=== PATIENT | female | born 1985 ===

== ENCOUNTER 2017-02-22 13:10 | Emergency (ER) | payer OTHER ==
--- NOTE | 2017-02-22 19:06 | ED ORDER SUMMARY ---
..... Patient: STEF PINEDO OrderSheet [facility] VisitID: [id number] [address] [place] [address] 31y, F Registration Date/Time: 02/22/2017 ORDER SHEET Weight: 68.0 kg (stated) Allergies: No Known Drug Allergy GENERAL ORDERS: Urine Drug Screen Urgent (13:25 02/22/2017 EKoroleva P.A.-C) (Ack 13:36 RKaruga) (13:50 KWilliams R.N.) Urine Urgent (13:25 02/22/2017 EKoroleva P.A.-C) (Ack 13:36 RKaruga) (13:57 KPage-Kuchan R.N.) UA-Culture if indicated Urgent (13:25 02/22/2017 EKoroleva P.A.-C) (Ack 13:36 RKaruga) (13:50 KWilliams R.N.) CBC w Diff Urgent (13:34 02/22/2017 EKoroleva P.A.-C) (Ack 13:36 RKaruga) (13:57 KPage-Kuchan R.N.) BMP Urgent (13:34 02/22/2017 EKoroleva P.A.-C) (Ack 13:36 RKaruga) (13:57 KPage-Kuchan R.N.) Ethyl Alcohol Urgent (13:34 02/22/2017 EKoroleva P.A.-C) (Ack 13:36 RKaruga) (13:57 KPage-Kuchan R.N.) MEDICATION ORDERS: IV FLUIDS: ORDER SHEET NOTES: [Electronically signed by Tea Farmer R.N. (19:31 02/22/2017)] [Electronically signed by Kimberley PinaANava-C (20:56 02/22/2017)] [Electronically locked/signed by Tea Farmer R.N. (19:31 02/22/2017)]
--- NOTE | 2017-02-22 19:06 | ED ORDER SUMMARY ---
..... Patient: STEF PINEDO OrderSheet [facility] VisitID: [id number] [address] [place] [address] 31y, F Registration Date/Time: 02/22/2017 ORDER SHEET Weight: 68.0 kg (stated) Allergies: No Known Drug Allergy GENERAL ORDERS: Urine Drug Screen Urgent (13:25 02/22/2017 EKoroleva P.A.-C) (Ack 13:36 RKaruga) (13:50 KWilliams R.N.) Urine Urgent (13:25 02/22/2017 EKoroleva P.A.-C) (Ack 13:36 RKaruga) (13:57 KPage-Kuchan R.N.) UA-Culture if indicated Urgent (13:25 02/22/2017 EKoroleva P.A.-C) (Ack 13:36 RKaruga) (13:50 KWilliams R.N.) CBC w Diff Urgent (13:34 02/22/2017 EKoroleva P.A.-C) (Ack 13:36 RKaruga) (13:57 KPage-Kuchan R.N.) BMP Urgent (13:34 02/22/2017 EKoroleva P.A.-C) (Ack 13:36 RKaruga) (13:57 KPage-Kuchan R.N.) Ethyl Alcohol Urgent (13:34 02/22/2017 EKoroleva P.A.-C) (Ack 13:36 RKaruga) (13:57 KPage-Kuchan R.N.) MEDICATION ORDERS: IV FLUIDS: ORDER SHEET NOTES: [Electronically signed by Tea Farmer R.N. (19:31 02/22/2017)] [Electronically signed by Kimberley PinaANava-C (20:56 02/22/2017)] [Electronically locked/signed by Tea Farmer R.N. (19:31 02/22/2017)]
--- NOTE | 2017-02-22 19:06 | ED NURSING NOTES ---
Clinical Report - Nurses [facility] [place] [address] 02/22/2017 13:11 Patient: STEF PINEDO TRIAGE Triage time 13:05. Acuity: LEVEL 2. Chief Complaint: SUICIDAL THOUGHTS. Alert. No acute distress. JAMI COMA SCORE: Jami Coma Scale: 15- eyes open spontaneously (4); best verbal response- oriented x 4 (5); best motor response- obeys commands (6). --13:47 Faustina Pinedo R.N. 13:16 02/22/17. BP: 125/73. HR: 113. RR: 16. O2 saturation: 99% on room air. Temp: 98.4 F (oral). Pain level now 0/10. --13:47 Faustina Pinedo R.N. BREATHALYZER: Breathalyzer (.000). --13:49 Faustina Pinedo R.N. 13:20. BREATHALYZER: Breathalyzer (.00). --14:03 [facility]. Weight: 68 kg stated. Height/Length: 62 inches Per Patient. BMI: 27.4. --13:20 Faustina Pinedo R.N. Medications OLANZapine Oral. --13:43 Faustina Pinedo R.N. Depakote Oral. --13:43 Faustina Pinedo R.N. Allergies No Known Drug Allergy. --13:43 Faustina Pinedo R.N. History ( pt arrived with PD, arrested for theft at [facility] and stated to [employer] officer, "I'm gonna be suicidal if you take me to longterm." Pt states to this RN in triage, "I'm not suicidal, I said I was going to be suicidal if he arrested me." States she is withdrawing from heroin.). SOCIAL HX: Current every day heavy tobacco smoker- 1 pack per day. History of heavy drug use: heroin, methamphetamines. Recently used drugs yesterday. No alcohol use. FALL RISK ASSESSMENT: Fall risk assessment completed. No fall risk identified. NUTRITIONAL RISK ASSESSMENT: The nutritional risk assessment revealed no deficiencies. FUNCTIONAL ASSESSMENT: Functional assessment: no impairments noted. LEARNING NEEDS ASSESSMENT: The learning needs assessment revealed no barriers. SKIN INTEGRITY ASSESSMENT: Skin integrity risk assessment completed. No skin integrity risk identified. --13:47 Faustina Pinedo R.N. PROBLEMS: Hypokalemia. Vomiting. "hearing voices". Laceration. Tetanus Status. LNMP - Last Normal Menstrual Period. --13:44 Faustina Pinedo R.N. ADDITIONAL SURGERIES: . --13:44 Faustina Pinedo R.N. Interventions ID band on patient. To treatment room. --13:47 Faustina Pinedo R.N. PHYSICAL ASSESSMENT Ambulatory to room. GENERAL / NEURO / PSYCH: Appears anxious. RESPIRATORY: Respirations not labored. CVS: Capillary refill less than 2 seconds. GI / : Abdomen soft. SKIN: ( open lesions to left wrist and left AC, pt states they are from cutting herself with her nails). --13:48 Faustina Pinedo R.N. Ambulatory to room. Patient gowned. ( clothing bagged and tagged and placed in locker by Patricia OLIVAREZ). GENERAL / NEURO / PSYCH: Alert. Oriented X 4. Speech within normal limits. Poor eye contact. Appears agitated (bib [employer] for c/o SI, pt denies). Patient appears well-nourished and unkempt. RESPIRATORY: Respirations not labored. Breath sounds within normal limits. CVS: Capillary refill less than 2 seconds. GI / : Abdomen soft and nontender. SKIN: Multiple extremity wounds present (various stages of healing as already documented). Skin is warm and dry. Laceration; (pt has lacs to left ac, left radial side of wrist and superficial scratches to bilat arms in various degrees of healing, pt reports self inflicted "I use my fingernails" pt reports utd on tetanus. pt has scarring to bilat upper extremities). Skin color is within normal limits. --13:54 Tea Farmer R.N. NURSING PROGRESS NOTES 13:48 02/22/17. The plan of care for this patient has been created. Patient gowned. Head of bed elevated. Suicide precautions initiated: a safety sweep of the room has been completed. Frequent one on one supervision, clothing / valuables removed and placed in the safe. Call light placed in reach. Bed placed in lowest position. Brakes of bed on. Patient ready for evaluation- chart flagged. --13:48 Faustina Pinedo R.N. Assisted patient to bathroom and back to bed; tolerated well. Patient ID band checked for patient name and birthdate: patient confirmed. Instructions provided to collect clean catch urine and patient verbalized understanding. Clean catch urine collected with return of yellow-colored clear urine; odor is normal; sample sent to lab for urinalysis and drug screen. Specimen labeled in the presence of the patient. --13:49 Faustina Pinedo R.N. Checked patient birthdate: patient confirmed. Blood samples drawn from the left antecubital space with Vacutainer 22g by nurse per protocol ; labeled in presence of the patient and sent to lab: rainbow set. Suicide precautions maintained: a safety sweep of the room is ongoing. Room stripped of hazardous items. Continuous one on one supervision, clothing / valuables removed and placed in the safe. Patient placed in paper scrubs and in direct sight of the nurse's station. Provider has been notified. Two patient identifiers checked. Call light placed in reach. Bed placed in lowest position. Brakes of bed on. Care transferred and report received. ( food provided by EDT, ok'd with PA). --13:56 Tea Farmer R.N. ( 13:20. BREATHALYZER: Breathalyzer (.00).). --14:04 GraemePatricia greenberg 13:55. ( At Pt bedside to give her sandwiches and ice water.). --14:05 Patricia Corrales ( per PA, pt medically clear, ESW notified with aleyda time of 1800). --14:19 Tea Farmer R.N. ( [facility] fax PAT team called for an assessment and the gave us an approximate time of arrival as 18:00). --14:21 Patricia Corrales ( pt sleeping, equal rise/fall of chest, call light in reach.). --14:58 Tea Farmer R.N. The patient is sleeping. --15:02 Faustina Pinedo R.N. ( Ambulated to and from the bathroom x 2, Patient stating, having diarrhea. Ambulated with standby staff.). --15:14 Mandi Rao R.N. ( food provided to pt, pt aware we are waiting for ESW). --16:22 Tea Farmer R.N. ( pt up in room ambulating, pt updated on wait for esw- pt ate meal provided, reports "I'm nieves dope sick but I ate it" v/s taken, pt cooperative, pt was found up in room playing with iv pole, asked to remain on gurney to maintain her safety and ours.). --17:00 Tea Farmer R.N. 16:59 02/22/17. BP: 132/88. HR: 94. RR: 17. O2 saturation: 99%. Pain level now 0/10. --17:00 Tea Farmer R.N. ( pt belongings provided to pt by JUANIS Guillen). --19:31 Tea Farmer R.N. DISPOSITION / DISCHARGE ( preparing pt for dispo). --19:19 Tea Farmer R.N. Departure time: 19:24 Feb 22 2017. Condition at departure: improved. The goals identified in the patient's plan of care were met. The following issues were addressed: psycho-social issues and follow up care. PAT team ok'd for dc- pt denies SI upon dispo and t/o pts care. No learning barriers present. Discharge instructions provided and reviewed with the patient. Reviewed need to stop smoking- provided smoking cessation counseling. Patient verbalized understanding. The patient was discharged by the physician assistant professor of chemistry. She was discharged home and accompanied by family and pts aunt coming to pick pt up. She left the Emergency Department ambulatory and via private vehicle. Family member driving. ( pt given dc instructions, enc to stop smoking and drug use, pt reports having been in treatment prior and has plans for friday looking into in patient treatment for heroin use. pt denies SI). FALL RISK ASSESSMENT: Fall risk assessment completed. No fall risk identified. --19:30 Tea Farmer R.N. 19:26 02/22/17. BP: 142/79. HR: 92. RR: 17. O2 saturation: 97%. Temp: 98.4 F. Pain level now 0/10. --19:30 Tea Farmer R.N. Locked/Released at 02/22/2017 19:31 by Tea Farmer R.N.
--- NOTE | 2017-02-22 19:06 | ED NURSING NOTES ---
Clinical Report - Nurses [facility] [place] [address] 02/22/2017 13:11 Patient: STEF PINEDO TRIAGE Triage time 13:05. Acuity: LEVEL 2. Chief Complaint: SUICIDAL THOUGHTS. Alert. No acute distress. JAMI COMA SCORE: Jami Coma Scale: 15- eyes open spontaneously (4); best verbal response- oriented x 4 (5); best motor response- obeys commands (6). --13:47 Faustina Pinedo R.N. 13:16 02/22/17. BP: 125/73. HR: 113. RR: 16. O2 saturation: 99% on room air. Temp: 98.4 F (oral). Pain level now 0/10. --13:47 Faustina Pinedo R.N. BREATHALYZER: Breathalyzer (.000). --13:49 Faustina Pinedo R.N. 13:20. BREATHALYZER: Breathalyzer (.00). --14:03 [facility]. Weight: 68 kg stated. Height/Length: 62 inches Per Patient. BMI: 27.4. --13:20 Faustina Pinedo R.N. Medications OLANZapine Oral. --13:43 Faustina Pinedo R.N. Depakote Oral. --13:43 Faustina Pinedo R.N. Allergies No Known Drug Allergy. --13:43 Faustina Pinedo R.N. History ( pt arrived with PD, arrested for theft at [facility] and stated to [employer] officer, "I'm gonna be suicidal if you take me to [facility]." Pt states to this RN in triage, "I'm not suicidal, I said I was going to be suicidal if he arrested me." States she is withdrawing from heroin.). SOCIAL HX: Current every day heavy tobacco smoker- 1 pack per day. History of heavy drug use: heroin, methamphetamines. Recently used drugs yesterday. No alcohol use. FALL RISK ASSESSMENT: Fall risk assessment completed. No fall risk identified. NUTRITIONAL RISK ASSESSMENT: The nutritional risk assessment revealed no deficiencies. FUNCTIONAL ASSESSMENT: Functional assessment: no impairments noted. LEARNING NEEDS ASSESSMENT: The learning needs assessment revealed no barriers. SKIN INTEGRITY ASSESSMENT: Skin integrity risk assessment completed. No skin integrity risk identified. --13:47 Faustina Pinedo R.N. PROBLEMS: Hypokalemia. Vomiting. "hearing voices". Laceration. Tetanus Status. LNMP - Last Normal Menstrual Period. --13:44 Faustina Pinedo R.N. ADDITIONAL SURGERIES: . --13:44 Faustina Pinedo R.N. Interventions ID band on patient. To treatment room. --13:47 Faustina Pinedo R.N. PHYSICAL ASSESSMENT Ambulatory to room. GENERAL / NEURO / PSYCH: Appears anxious. RESPIRATORY: Respirations not labored. CVS: Capillary refill less than 2 seconds. GI / : Abdomen soft. SKIN: ( open lesions to left wrist and left AC, pt states they are from cutting herself with her nails). --13:48 Faustina Pinedo R.N. Ambulatory to room. Patient gowned. ( clothing bagged and tagged and placed in locker by Patricia OLIVAREZ). GENERAL / NEURO / PSYCH: Alert. Oriented X 4. Speech within normal limits. Poor eye contact. Appears agitated (bib [employer] for c/o SI, pt denies). Patient appears well-nourished and unkempt. RESPIRATORY: Respirations not labored. Breath sounds within normal limits. CVS: Capillary refill less than 2 seconds. GI / : Abdomen soft and nontender. SKIN: Multiple extremity wounds present (various stages of healing as already documented). Skin is warm and dry. Laceration; (pt has lacs to left ac, left radial side of wrist and superficial scratches to bilat arms in various degrees of healing, pt reports self inflicted "I use my fingernails" pt reports utd on tetanus. pt has scarring to bilat upper extremities). Skin color is within normal limits. --13:54 Tea Farmer R.N. NURSING PROGRESS NOTES 13:48 02/22/17. The plan of care for this patient has been created. Patient gowned. Head of bed elevated. Suicide precautions initiated: a safety sweep of the room has been completed. Frequent one on one supervision, clothing / valuables removed and placed in the safe. Call light placed in reach. Bed placed in lowest position. Brakes of bed on. Patient ready for evaluation- chart flagged. --13:48 Faustina Pinedo R.N. Assisted patient to bathroom and back to bed; tolerated well. Patient ID band checked for patient name and birthdate: patient confirmed. Instructions provided to collect clean catch urine and patient verbalized understanding. Clean catch urine collected with return of yellow-colored clear urine; odor is normal; sample sent to lab for urinalysis and drug screen. Specimen labeled in the presence of the patient. --13:49 Faustina Pinedo R.N. Checked patient birthdate: patient confirmed. Blood samples drawn from the left antecubital space with Vacutainer 22g by nurse per protocol ; labeled in presence of the patient and sent to lab: rainbow set. Suicide precautions maintained: a safety sweep of the room is ongoing. Room stripped of hazardous items. Continuous one on one supervision, clothing / valuables removed and placed in the safe. Patient placed in paper scrubs and in direct sight of the nurse's station. Provider has been notified. Two patient identifiers checked. Call light placed in reach. Bed placed in lowest position. Brakes of bed on. Care transferred and report received. ( food provided by EDT, ok'd with PA). --13:56 Tea Farmer R.N. ( 13:20. BREATHALYZER: Breathalyzer (.00).). --14:04 GraemePatricia greenberg 13:55. ( At Pt bedside to give her sandwiches and ice water.). --14:05 Patricia Corrales ( per PA, pt medically clear, ESW notified with aleyda time of 1800). --14:19 Tea Farmer R.N. ( [facility] fax PAT team called for an assessment and the gave us an approximate time of arrival as 18:00). --14:21 Patricia Corrales ( pt sleeping, equal rise/fall of chest, call light in reach.). --14:58 Tea Farmer R.N. The patient is sleeping. --15:02 Faustina Pinedo R.N. ( Ambulated to and from the bathroom x 2, Patient stating, having diarrhea. Ambulated with standby staff.). --15:14 Mandi Rao R.N. ( food provided to pt, pt aware we are waiting for ESW). --16:22 Tea Farmer R.N. ( pt up in room ambulating, pt updated on wait for esw- pt ate meal provided, reports "I'm nieves dope sick but I ate it" v/s taken, pt cooperative, pt was found up in room playing with iv pole, asked to remain on gurney to maintain her safety and ours.). --17:00 Tea Farmer R.N. 16:59 02/22/17. BP: 132/88. HR: 94. RR: 17. O2 saturation: 99%. Pain level now 0/10. --17:00 Tea Farmer R.N. ( pt belongings provided to pt by JUANIS Guillen). --19:31 eTa Farmer R.N. DISPOSITION / DISCHARGE ( preparing pt for dispo). --19:19 Tea Farmer R.N. Departure time: 19:24 Feb 22 2017. Condition at departure: improved. The goals identified in the patient's plan of care were met. The following issues were addressed: psycho-social issues and follow up care. PAT team ok'd for dc- pt denies SI upon dispo and t/o pts care. No learning barriers present. Discharge instructions provided and reviewed with the patient. Reviewed need to stop smoking- provided smoking cessation counseling. Patient verbalized understanding. The patient was discharged by the physician actuarial assistant. She was discharged home and accompanied by family and pts aunt coming to pick pt up. She left the Emergency Department ambulatory and via private vehicle. Family member driving. ( pt given dc instructions, enc to stop smoking and drug use, pt reports having been in treatment prior and has plans for friday looking into in patient treatment for heroin use. pt denies SI). FALL RISK ASSESSMENT: Fall risk assessment completed. No fall risk identified. --19:30 Tea Farmer R.N. 19:26 02/22/17. BP: 142/79. HR: 92. RR: 17. O2 saturation: 97%. Temp: 98.4 F. Pain level now 0/10. --19:30 Tea Farmer R.N. Locked/Released at 02/22/2017 19:31 by Tea Farmer R.N.
--- NOTE | 2017-02-22 19:06 | ED CLINICAL REPORT ---
Clinical Report - Physicians/Mid Levels [facility] [address] [place] [address] 02/22/2017 13:11 Patient: STEF PINEDO Time Seen: 1309Feb 22 2017. Arrived- By private vehicle. Police present. Historian- patient. HISTORY OF PRESENT ILLNESS Chief Complaint: DEPRESSED and SUICIDAL THOUGHTS. This started just prior to arrival. (Patient was in [facility], when she was found stealing, and was going to be going to residential, when she expressed suicidal thought to the officer, who brought her in as an involuntary. Threatened to cut her wrist). Recent drug use (heroin yesterday). Has been sleeping. No anxiety. REVIEW OF SYSTEMS No headache, abdominal pain or diarrhea. All systems otherwise negative, except as recorded above. SOCIAL HISTORY History of IV drug use: heroin. Has place to stay. ADDITIONAL NOTES The nursing notes have been reviewed. PHYSICAL EXAM Vital Signs: 02/22/2017 13:16 BP: 125/73. HR: 113. RR: 16. O2 saturation: 99%. Temp: 98.4 F. Appearance: No apparent distress. (walking around the room). Neck: Normal inspection. No meningeal signs. CVS: Normal heart rate and rhythm. Heart sounds normal. Respiratory: Breath sounds normal. Chest nontender. Abdomen: Soft. No abdominal tenderness. Skin: Normal skin color. Psych / Neuro: Cognition normal. Thought process normal. Insight and judgement normal. Cranial nerves normal (as tested). No cerebellar findings. LABS, X-RAYS, AND EKG Laboratory Tests: UA-Culture if indicated: (FLAKITA: 02/22/2017 13:22) ( MsgRcvd 02/22/2017 13:42) Final results Test Result Flag Units (Reference) URINE COLOR YELLOW URINE APPEARANCE CLEAR URINE GLUCOSE NEGATIVE (NEGATIVE) URINE BILIRUBIN NEGATIVE (NEGATIVE) URINE KETONE NEGATIVE (NEGATIVE) URINE SPECIFIC GRAVITY 1.015 (1.010-1.030) URINE PH 8.0 (5.0-8.0) URINE PROTEIN NEGATIVE (NEGATIVE) URINE UROBILINOGEN 0.2 EU/dL (0.2-1.0) URINE NITRITE NEGATIVE (NEGATIVE) URINE BLOOD NEGATIVE (NEGATIVE) URINE LEUK ESTERASE NEGATIVE (NEGATIVE) URINE RBC RARE rbc/hpf (0-1) URINE WBC 0-1 wbc/hpf (0-1) URINE EPITHELIAL CELLS 1-3 EPI/hpf (0-5) URINE BACTERIA NONE SEEN (NONE SEEN) URINE COMMENT CULT NOT INDICATED URINE CULTURES ARE SET-UP BASED ON THE FOLLOWING CRITERIA:POSITIVE NITRITEPOSITIVE LEUKOCYTE ESTERASEGREATER THAN 10 WHITE BLOOD CELLSMODERATE (2+) OR GREATER BACTERIA Urine: (FLAKITA: 02/22/2017 13:22) ( [facility] 02/22/2017 13:40) Final results Test Result Flag Units (Reference) URINE NEGATIVE CBC w Diff: (FLAKITA: 02/22/2017 13:25) ( [facility] 02/22/2017 13:48) Final results Test Result Flag Units (Reference) WHITE BLOOD COUNT 10.9 K/uL (4.5-11.5) RED BLOOD COUNT 4.38 M/uL (4.00-5.20) HEMOGLOBIN 12.6 gm/dL (12.0-16.0) HEMATOCRIT 37.9 % (36.0-46.0) MEAN CELL VOLUME 87 fL (80-100) MEAN CORPUSCULAR HGB 29 pg (26-34) MEAN CORPUSCULAR HGB CONC 33 g/dL (31-37) RED CELL DISTRIBUTION WIDTH 15.4 H % (11.6-14.8) PLATELET COUNT 274 K/uL (150-400) NEUTROPHIL % 83.6 H % (50-75) LYMPH % 12.3 L % (25-40) MONO % 3.4 % (3-14) EOSINOPHIL % 0.4 % (0-4) BASOPHIL % 0.3 % (0-2) BMP: (FLAKITA: 02/22/2017 13:25) ( [facility] 02/22/2017 14:05) Final results Test Result Flag Units (Reference) GLUCOSE 108 mg/dL (70-110) BUN 10 mg/dL (7-18) CREATININE 0.7 mg/dL (0.6-1.3) Estimated GFR >60 mL/min Estimated GFR- >60 mL/min Note: Persistent reduction over 3 months in eGFR<60 mL/min/1.73 m2 defines CKD. Patients with eGFR values>=60 mL/min/1.73 m2 may also have CKD if evidence ofpersistent proteinuria. Additional information may be foundat www.kidney.org. SODIUM 141 mmol/L (136-145) POTASSIUM 3.9 mmol/L (3.5-5.1) CHLORIDE 105 mmol/L (98-107) CARBON DIOXIDE 26 mmol/L (21-32) CALCIUM 8.6 mg/dL (8.5-10.1) ETHYL ALCOHOL < 3 L mg/dL (3-10) Urine Drug Screen: (FLAKITA: 02/22/2017 13:22) ( MsgRcvd 02/22/2017 14:04) Final results Test Result Flag Units (Reference) AMPHETAMINE/METHAMPHETAMINE NEGATIVE (NEGATIVE) BARBITURATE NEGATIVE (NEGATIVE) BENZODIAZEPINE NEGATIVE (NEGATIVE) CANNABINOID NEGATIVE (NEGATIVE) COCAINE NEGATIVE (NEGATIVE) ECSTASY NEGATIVE (NEGATIVE) METHADONE NEGATIVE (NEGATIVE) OPIATE POSITIVE H (NEGATIVE) The urine drug screen is a qualitative screening test fordrug overdose and abuse. All screen results should beconsidered as presumptive.Drugs screened for are as follows:BenzodiazepinesCocaineAmphetamines/MetamphetaminesTHC (Tetrahydrocannabinol)OpiatesBarbituratesEcstasyMethadonePositive results are unconfirmed. For confirmation, notifythe lab for the specimen to be sent to the reference lab.All confirmations must be performed by a differentmethodology.The ingestion of natural herbal and plant productscontaining Ephedra/Ephedra metabolites can produce in urineone or more substances capable of cross reacting withamphetamine/methamphetamine immunoassays. These testsprovide a preliminary result only. A more specificalternative chemical method must be used to obtain aconfirmed analytical result. . PROGRESS AND PROCEDURES Course of Care: Pt made SI statements at police: reports she would cut her self Patient was cleared medically. Awaiting for evaluation. Patient stable. To follow up outpatient. Patient was offered a crisis bed, declined. Was cleared and sign for contract with [facility] team. 02/22/2017 19:26 BP: 142/79. HR: 92. RR: 17. O2 saturation: 97%. Temp: 98.4 F. Patient is stable. Patient/family counseled. Disposition: Discharged. CLINICAL IMPRESSION Suicidal ideation. Mild major depressive disorder. Hypertension. Substance abuse problems: abuse of opiates. Substance dependence problems: dependence on opiates. (Electronically signed by Kimberley Pina P.A.-C 02/22/2017 20:56)
--- NOTE | 2017-02-22 19:06 | ED CLINICAL REPORT ---
Clinical Report - Physicians/Mid Levels [facility] [address] [place] [address] 02/22/2017 13:11 Patient: STEF PINEDO Time Seen: 1309Feb 22 2017. Arrived- By private vehicle. Police present. Historian- patient. HISTORY OF PRESENT ILLNESS Chief Complaint: DEPRESSED and SUICIDAL THOUGHTS. This started just prior to arrival. (Patient was in [facility], when she was found stealing, and was going to be going to snf, when she expressed suicidal thought to the officer, who brought her in as an involuntary. Threatened to cut her wrist). Recent drug use (heroin yesterday). Has been sleeping. No anxiety. REVIEW OF SYSTEMS No headache, abdominal pain or diarrhea. All systems otherwise negative, except as recorded above. SOCIAL HISTORY History of IV drug use: heroin. Has place to stay. ADDITIONAL NOTES The nursing notes have been reviewed. PHYSICAL EXAM Vital Signs: 02/22/2017 13:16 BP: 125/73. HR: 113. RR: 16. O2 saturation: 99%. Temp: 98.4 F. Appearance: No apparent distress. (walking around the room). Neck: Normal inspection. No meningeal signs. CVS: Normal heart rate and rhythm. Heart sounds normal. Respiratory: Breath sounds normal. Chest nontender. Abdomen: Soft. No abdominal tenderness. Skin: Normal skin color. Psych / Neuro: Cognition normal. Thought process normal. Insight and judgement normal. Cranial nerves normal (as tested). No cerebellar findings. LABS, X-RAYS, AND EKG Laboratory Tests: UA-Culture if indicated: (FLAKITA: 02/22/2017 13:22) ( MsgRcvd 02/22/2017 13:42) Final results Test Result Flag Units (Reference) URINE COLOR YELLOW URINE APPEARANCE CLEAR URINE GLUCOSE NEGATIVE (NEGATIVE) URINE BILIRUBIN NEGATIVE (NEGATIVE) URINE KETONE NEGATIVE (NEGATIVE) URINE SPECIFIC GRAVITY 1.015 (1.010-1.030) URINE PH 8.0 (5.0-8.0) URINE PROTEIN NEGATIVE (NEGATIVE) URINE UROBILINOGEN 0.2 EU/dL (0.2-1.0) URINE NITRITE NEGATIVE (NEGATIVE) URINE BLOOD NEGATIVE (NEGATIVE) URINE LEUK ESTERASE NEGATIVE (NEGATIVE) URINE RBC RARE rbc/hpf (0-1) URINE WBC 0-1 wbc/hpf (0-1) URINE EPITHELIAL CELLS 1-3 EPI/hpf (0-5) URINE BACTERIA NONE SEEN (NONE SEEN) URINE COMMENT CULT NOT INDICATED URINE CULTURES ARE SET-UP BASED ON THE FOLLOWING CRITERIA:POSITIVE NITRITEPOSITIVE LEUKOCYTE ESTERASEGREATER THAN 10 WHITE BLOOD CELLSMODERATE (2+) OR GREATER BACTERIA Urine: (FLAKITA: 02/22/2017 13:22) ( [facility] 02/22/2017 13:40) Final results Test Result Flag Units (Reference) URINE NEGATIVE CBC w Diff: (FLAKITA: 02/22/2017 13:25) ( [facility] 02/22/2017 13:48) Final results Test Result Flag Units (Reference) WHITE BLOOD COUNT 10.9 K/uL (4.5-11.5) RED BLOOD COUNT 4.38 M/uL (4.00-5.20) HEMOGLOBIN 12.6 gm/dL (12.0-16.0) HEMATOCRIT 37.9 % (36.0-46.0) MEAN CELL VOLUME 87 fL (80-100) MEAN CORPUSCULAR HGB 29 pg (26-34) MEAN CORPUSCULAR HGB CONC 33 g/dL (31-37) RED CELL DISTRIBUTION WIDTH 15.4 H % (11.6-14.8) PLATELET COUNT 274 K/uL (150-400) NEUTROPHIL % 83.6 H % (50-75) LYMPH % 12.3 L % (25-40) MONO % 3.4 % (3-14) EOSINOPHIL % 0.4 % (0-4) BASOPHIL % 0.3 % (0-2) BMP: (FLAKITA: 02/22/2017 13:25) ( [facility] 02/22/2017 14:05) Final results Test Result Flag Units (Reference) GLUCOSE 108 mg/dL (70-110) BUN 10 mg/dL (7-18) CREATININE 0.7 mg/dL (0.6-1.3) Estimated GFR >60 mL/min Estimated GFR- >60 mL/min Note: Persistent reduction over 3 months in eGFR<60 mL/min/1.73 m2 defines CKD. Patients with eGFR values>=60 mL/min/1.73 m2 may also have CKD if evidence ofpersistent proteinuria. Additional information may be foundat www.kidney.org. SODIUM 141 mmol/L (136-145) POTASSIUM 3.9 mmol/L (3.5-5.1) CHLORIDE 105 mmol/L (98-107) CARBON DIOXIDE 26 mmol/L (21-32) CALCIUM 8.6 mg/dL (8.5-10.1) ETHYL ALCOHOL < 3 L mg/dL (3-10) Urine Drug Screen: (FLAKITA: 02/22/2017 13:22) ( MsgRcvd 02/22/2017 14:04) Final results Test Result Flag Units (Reference) AMPHETAMINE/METHAMPHETAMINE NEGATIVE (NEGATIVE) BARBITURATE NEGATIVE (NEGATIVE) BENZODIAZEPINE NEGATIVE (NEGATIVE) CANNABINOID NEGATIVE (NEGATIVE) COCAINE NEGATIVE (NEGATIVE) ECSTASY NEGATIVE (NEGATIVE) METHADONE NEGATIVE (NEGATIVE) OPIATE POSITIVE H (NEGATIVE) The urine drug screen is a qualitative screening test fordrug overdose and abuse. All screen results should beconsidered as presumptive.Drugs screened for are as follows:BenzodiazepinesCocaineAmphetamines/MetamphetaminesTHC (Tetrahydrocannabinol)OpiatesBarbituratesEcstasyMethadonePositive results are unconfirmed. For confirmation, notifythe lab for the specimen to be sent to the reference lab.All confirmations must be performed by a differentmethodology.The ingestion of natural herbal and plant productscontaining Ephedra/Ephedra metabolites can produce in urineone or more substances capable of cross reacting withamphetamine/methamphetamine immunoassays. These testsprovide a preliminary result only. A more specificalternative chemical method must be used to obtain aconfirmed analytical result. . PROGRESS AND PROCEDURES Course of Care: Pt made SI statements at police: reports she would cut her self Patient was cleared medically. Awaiting for evaluation. Patient stable. To follow up outpatient. Patient was offered a crisis bed, declined. Was cleared and sign for contract with [facility] team. 02/22/2017 19:26 BP: 142/79. HR: 92. RR: 17. O2 saturation: 97%. Temp: 98.4 F. Patient is stable. Patient/family counseled. Disposition: Discharged. CLINICAL IMPRESSION Suicidal ideation. Mild major depressive disorder. Hypertension. Substance abuse problems: abuse of opiates. Substance dependence problems: dependence on opiates. (Electronically signed by Kimberley Pina P.A.-C 02/22/2017 20:56)
--- NOTE | 2017-02-22 20:56 | ED MAR SUMMARY ---
..... Medication Administration Record [facility] [address] [place], [place] [id number] Patient: STEF PINEDO Visit ID: [id number] 31y, F Weight: 68.0 kg Height/Length: 62 in BMI: 27.4 ALLERGIES: No Known Drug Allergy
--- NOTE | 2017-02-22 20:56 | ED MAR SUMMARY ---
..... Medication Administration Record [facility] [address] [place], [place] [id number] Patient: STEF PINEDO Visit ID: [id number] 31y, F Weight: 68.0 kg Height/Length: 62 in BMI: 27.4 ALLERGIES: No Known Drug Allergy
--- NOTE | 2017-02-22 20:56 | ED DISCHARGE INSTRUCTIONS ---
Patient: STEF PINEDO General Instructions [facility] VisitID: [id number] [address] [place] [address] 31y, F Registration Date/Time: 02/22/2017 Suicidal ideation. Mild major depressive disorder. Hypertension. Substance abuse problems: abuse of opiates. Substance dependence problems: dependence on opiates. ADDITIONAL INFORMATION Depression Depression is one of the most common mental health problems today. It is not just a state of unhappiness or sadness. It is a true disease. The cause seems to be related to a decrease in chemicals that transmit signals in the brain. Having a family history of depression, alcoholism or suicide increases the risk. Chronic illness, chronic pain, migraine headaches and high emotional stress also increase the risk. Depression can cause many different symptoms, such as: -- Loss of appetite -- Over-eating -- Not being able to sleep -- Sleeping too much -- Tiredness not related to physical exertion -- Restlessness or irritability -- Slowness of movement or speech -- Feeling depressed or withdrawn -- Loss of interest in things you once enjoyed -- Difficulty in concentrating, poor memory, have trouble making decisions -- Thoughts of harming or killing oneself, or thoughts that life is not worth living -- Low self-esteem The best treatment for depression is a combination of medicine and psychotherapy. Antidepressant medicines can reduce suffering and can improve the ability to function during the depressed period. Therapy can offer emotional support and help you understand emotional factors that may be causing the depression. Home Care: 1) Be kind to yourself. Make it a point to do things that you enjoy (gardening, walking in nature, going to a movie, etc.). Reward yourself for small successes. 2) Take care of your physical body. Eat a balanced diet (low in saturated fat and high in fruits and vegetables). Establish an exercise plan at least 3 times a week for 30 minutes. Even mild-moderate exercise (like brisk walking) can make you feel better. 3) Avoid alcohol, which can make depression worse. Follow-Up with your doctor as advised. It is important to keep in contact with a health care provider until your symptoms begin to improve. Get Prompt Medical Attention if any of the following occur: -- Feeling extreme depression, fear, anxiety, or anger toward yourself or others -- Feeling out of control -- Feeling that you may try to harm yourself or another -- Hearing voices that others do not hear -- Seeing things that others do not see -- Cant sleep or eat for 3 days in a row You have been given the following additional information: Depression (Electronically signed by Kimberley Pina P.A.-C 02/22/2017 20:56)
--- NOTE | 2017-02-22 20:56 | ED MED RECONCILIATION SUMMARY ---
Patient: STEF PINEDO Medication Reconciliation Report [facility] VisitID: [id number] [address] [place] [address] 31y, F Registration Date/Time: 02/22/2017 Weight: 68.0 kg Height/Length: 62 in. BMI: 27.4 ALLERGIES: No Known Drug Allergy The patient's Home Medications are listed below: THE FOLLOWING MEDICATIONS NEED TO BE RECONCILED: Depakote Oral OLANZapine Oral The source(s) of the original Home Medication information: Not obtained. The following Medications were given to the patient in the Emergency Department: None. The following Medications were prescribed to the patient: None.
--- NOTE | 2017-02-22 20:56 | ED MED RECONCILIATION SUMMARY ---
Patient: STEF PINEDO Medication Reconciliation Report [facility] VisitID: [id number] [address] [place] [address] 31y, F Registration Date/Time: 02/22/2017 Weight: 68.0 kg Height/Length: 62 in. BMI: 27.4 ALLERGIES: No Known Drug Allergy The patient's Home Medications are listed below: THE FOLLOWING MEDICATIONS NEED TO BE RECONCILED: Depakote Oral OLANZapine Oral The source(s) of the original Home Medication information: Not obtained. The following Medications were given to the patient in the Emergency Department: None. The following Medications were prescribed to the patient: None.
== END 2017-02-22 19:24 | disposition home or self-care (01) ==
LOC: ED SRH 13:10
DX: F32.9 Major depressive disorder, single episode, unspecified (principal); R45.851 Suicidal ideations; F11.20 Opioid dependence, uncomplicated; Z79.899 Other long term (current) drug therapy; F17.210 Nicotine dependence, cigarettes, uncomplicated
CPT/HCPCS: 90004; 90047; 90074; 92010; 92760; 92761; 92762; 92763; 92764; 92765; 92766; 92767; 93070; 95059